=== PATIENT | male | born 1960 | race Two or more races ===

== ENCOUNTER 2021-09-01 11:45 | Outpatient (CLI) | payer BC | END 2021-09-01 23:59 | disposition home or self-care (01) | LOC: LAB 11:45 | PROVIDERS: ATTEND Internal Medicine Nephrology | DX: Z01.812 Encounter for preprocedural laboratory examination (principal); Z20.822 Contact with and (suspected) exposure to COVID-19 | CPT/HCPCS: C9803; U0003 ==

== ENCOUNTER 2021-09-07 11:04 | Day surgery (SDC) | payer BC ==
[~2021-09-07] VITALS: Ht 172.7 cm; Wt 74.8 kg
--- NOTE | 2021-09-07 11:45 | NUR ---
MS RN ADMITTING NOTES PATIENT ON THE FLOOR. CAME IN FOR DAY SURGERY. A/O X4, MEDICALLY STABLE. PATIENT ADMITTED TO THE UNIT AND PREPARED FOR SURGERY.
[2021-09-07 12:00] VITALS: BP 107/66
--- NOTE | 2021-09-07 12:20 | NUR ---
MS RN NOTES CONSENTS SIGNED AND IV LINE STARTED AT [facility] G # 20
[2021-09-07] MEDS ORDERED: ANESTHESIA TRAY IN PYXIS 1 EA TRAY MC ONE (12:22)
[2021-09-07] MEDS ORDERED: BUPIVACAINE 0.5 % PF 150 MG/30 ML VIAL ONE ×2 (12:22→13:46)
[2021-09-07] MEDS ORDERED: ROCURONIUM BROMIDE 50 MG/5 ML ONE (12:41)
[2021-09-07] MEDS ORDERED: FENTANYL PF 100MCG/2ML AMPUL ONE (12:41)
[2021-09-07] MEDS ORDERED: MIDAZOLAM HCL 2 MG/2ML VIAL ONE (12:58)
[2021-09-07] MEDS ORDERED: LIDOCAINE 1%-EPI 1:100,000 20 ML VIAL ONE (13:46)
--- NOTE | 2021-09-07 15:51 | NUR ---
MS AMPLIFIER MECHANIC NOTE PATIENT DISCHARGED HOME IN MEDICALLY STABLE CONDITION. PATIENT A/O X4 ABLE TO MAKE NEEDS KNOWN. DISCHARGE PAPERWORK READY AND PHYSICIAN INSTRUCTIONS PROVIDED TO PATIENT. PATIENT VERBALIZED UNDERSTANDING. PATIENT LEFT THE UNIT AMBULATORY ASSISTED BY RN AT 1545. OUTSIDE FAMILY WAS WAITING IN A PRIVATE CAR.
== END 2021-09-07 19:00 | disposition home or self-care (01) ==
LOC: DS 11:04 → UNDOADMIN 11:07 → MED 11:07 → UNDODISIN 16:30 → DS 19:00
PROVIDERS: ATTEND Surgery
DX: D36.7 Benign neoplasm of other specified sites (principal); I10 Essential (primary) hypertension; E11.9 Type 2 diabetes mellitus without complications; Z98.890 Other specified postprocedural states; Z79.899 Other long term (current) drug therapy
CPT/HCPCS: 24076; 88304; J0360; J0690; J1100; J2250; J2405; J3010; J3490 ×4; J7030; G0378